=== PATIENT | female | born 1985 | race Two or more races ===

== ENCOUNTER 2017-04-28 06:40 | Emergency (ER) | payer MEDICAID ==
[~2017-04-28] VITALS: Ht 165.1 cm; Wt 72.6 kg
[~2017-04-28 06:40] MED LIST: [UNRECOGNIZED DRUG - CODE]
[2017-04-28 07:18] LABS: Basophils # (auto) 0 uL; Basophils % (auto) 0.3 % (0.0-2.0); CONDITION Y; Eosinophils # (auto) 0.1 uL; Hematocrit 36.3 % (36.0-46.0); Hemoglobin 12.1 g/dL (12.2-16.2); Lymphocytes # (auto) 1.2 uL; Lymphocytes % (auto) 16.4 % (10.0-50.0); Mean Corpuscular Hemoglobin 28.9 pg (28.0-32.0); Mean Corpuscular Hgb Conc. 33.5 g/dL (32.0-36.0); Mean Corpuscular Volume 86.4 fL (80.0-100.0); Mean Platelet Volume 8.8 fL (7.4-10.4); Monocytes # (auto) 0.6 uL; Monocytes % (auto) 8.2 % (0.0-12.0); Neutrophils # (auto) 5.4 uL; Neutrophils % (auto) 74.1 % (37.0-80.0); Platelet Count (auto) 276 10^3/uL (140-450); White Blood Cell 7.3 10^3/uL (4.4-10.8)
[2017-04-28] MEDS ORDERED: SODIUM CHLORIDE 0.9% 1,000 ML IVB ONE (07:34)
[2017-04-28] MEDS ORDERED: METOCLOPRAMIDE HCL 5MG/ml INJ 2ml VIAL IV ONE (07:45)
[2017-04-28] MEDS ORDERED: KETOROLAC TROMETH 30 MG/ML 1ML VIAL IV ONE (07:45)
[2017-04-28 08:09] LABS: Potassium 3.8 mmol/L (3.5-5.1)
[2017-04-28 08:10] LABS: Albumin 3.5 g/dL (3.4-5.0); BUN/Creatinine Ratio 11.1; Bilirubin, Total 0.5 mg/dL (0.2-1.0); Calcium 8.6 mg/dL (8.5-10.1); Total Protein 8.2 g/dL (6.4-8.2)
[2017-04-28 08:41] LABS: Urine Bilirubin Negative (Negative); Urine Color Yellow (Yellow); Urine Glucose Normal (Normal); Urine Mucus FEW (None Seen); Urine Nitrite Negative (Negative); Urine RBC 25 /hpf (0 - 4); Urine Squamous Epithelial Cell MOD /hpf (<5); Urine Urobilinogen Normal (Negative)
[2017-04-28 08:42] LABS: Urine Blood 2+ /uL (Negative); Urine Ketone 1+ (Negative)
[2017-04-28 10:04] VITALS: BP 115/61
[2017-04-28] MEDS ORDERED: cefTRIAXone 1GM/50ML D5W 50 ML IV ONE (12:00)
== END 2017-04-28 13:12 | disposition home or self-care (01) ==
LOC: ER 06:41
DX: N39.0 Urinary tract infection, site not specified (principal); R11.2 Nausea with vomiting, unspecified
CPT/HCPCS: 36415; 71020; 76705; 80053; 81001; 81025; 82150; 83690; 83735; 85025; 96361; 96365; 96375; 99285; J0696; J1885; J2765; J7030

== ENCOUNTER 2019-04-23 19:09 | Emergency (ER) | payer MEDICAID ==
[~2019-04-23] VITALS: Ht 165.1 cm; Wt 74.8 kg
[2019-04-23] MEDS ORDERED: ACETAMINOPHEN 325 MG TAB PO ONE (20:00)
[2019-04-23 20:38] LABS: Basophils # (auto) 0 uL; Basophils % (auto) 0.4 % (0.0-2.0); Eosinophils # (auto) 0.1 uL; Eosinophils % (auto) 1.3 % (0.0-7.0); Hematocrit 35.3 % (36.0-46.0); Hemoglobin 11.6 g/dL (12.2-16.2); Lymphocytes # (auto) 1.3 uL; Lymphocytes % (auto) 16.7 % (10.0-50.0); Mean Corpuscular Hemoglobin 27.3 pg (28.0-32.0); Mean Corpuscular Hgb Conc. 32.9 g/dL (32.0-36.0); Monocytes # (auto) 0.5 uL; Monocytes % (auto) 6.3 % (0.0-12.0); Neutrophils # (auto) 5.9 uL; Neutrophils % (auto) 75.3 % (37.0-80.0); Platelet Count (auto) 279 10^3/uL (140-450); Red Blood Cells 4.26 10^6/uL (4.0-5.20); White Blood Cell 7.9 10^3/uL (4.4-10.8)
[2019-04-23 20:39] LABS: Albumin 3.8 g/dL (3.4-5.0); BUN/Creatinine Ratio 9.6; Calcium 9.1 mg/dL (8.5-10.1); Potassium 3.8 mmol/L (3.5-5.1)
[2019-04-23 20:42] LABS: Bilirubin, Total 0.5 mg/dL (0.2-1.0); Total Protein 7.8 g/dL (6.4-8.2)
[2019-04-23 22:21] LABS: Urine Bacteria MANY /hpf (None Seen); Urine Blood 2+ /uL (Negative); Urine Mucus FEW (None Seen); Urine Specific Gravity 1.016 (1.001-1.035); Urine WBC 335 /hpf (0 - 5)
[2019-04-23] MEDS ORDERED: MORPHINE SULFATE 4 MG/ML SYR/VIAL IV ONE (23:15)
[2019-04-23] MEDS ORDERED: ONDANSETRON HCL 4 MG/2 ML VIAL IV ONE (23:15)
[2019-04-23] MEDS ORDERED: SODIUM CHLORIDE 0.9% 1,000 ML IV ONE (23:15)
[2019-04-23] MEDS ORDERED: cefTRIAXone 1GM/50ML D5W 50 ML IV ONE (23:15)
[2019-04-24] VITALS: BP 104/68
== END 2019-04-24 00:51 | disposition home or self-care (01) ==
LOC: ER 19:11
DX: N39.0 Urinary tract infection, site not specified (principal)
CPT/HCPCS: 36415; 74176; 80053; 81001; 84702; 85025; 96365; 96375; 99284; J0696; J2270; J2405; J7030

== ENCOUNTER 2020-07-11 17:33 | Emergency (ER) | payer MEDICAID ==
[~2020-07-11] VITALS: Ht 165.1 cm; Wt 74.8 kg
[2020-07-11 18:01] VITALS: BP 110/76
== END 2020-07-11 19:46 | disposition home or self-care (01) ==
LOC: ER 17:33
DX: U07.1 COVID-19 (principal); J18.8 Other pneumonia, unspecified organism
CPT/HCPCS: 36415; 71045; 87426

== ENCOUNTER 2022-08-02 18:22 | Emergency (ER) | payer MEDICAID ==
[~2022-08-02] VITALS: Ht 165.1 cm; Wt 74.0 kg
[2022-08-02 21:38] LABS: Urine Bacteria FEW /hpf (None Seen); Urine Blood 2+ /uL (Negative); Urine Specific Gravity 1.011 (1.001-1.035); Urine WBC 23 /hpf (0 - 5)
[2022-08-03] MEDS ORDERED: OXYCODONE W/ ACETAMINOPHEN 5/325MG TABLET PO ONE (02:15)
[2022-08-03] MEDS ORDERED: NITROFURANTOIN 100 mg CAP PO ONE (02:15)
[2022-08-03] MEDS ORDERED: cefTRIAXone SOD 1,000 MG VL IM ONE (02:15)
[2022-08-03] MEDS ORDERED: LIDOCAINE 1% HCL (LOCAL ANESTH.) INJ 20ML MDV IJ ONE (02:30)
[2022-08-03] MEDS ORDERED: NITR-87 PO (02:51)
[2022-08-03 03:07] VITALS: BP 119/64
== END 2022-08-03 03:04 | disposition left against medical advice (07) ==
LOC: ER 18:22
DX: N39.0 Urinary tract infection, site not specified (principal); Z79.899 Other long term (current) drug therapy
CPT/HCPCS: 74176; 81001

== ENCOUNTER 2023-06-30 10:01 | Emergency (ER) | payer MEDICAID ==
[~2023-06-30] VITALS: Ht 165.1 cm; Wt 79.2 kg
[~2023-06-30 10:01] MED LIST changes: +NITR-87 PO
[2023-06-30 10:29] VITALS: BP 124/91; PULSE 79; RESP 16; TEMP 98.1; O2SAT 100
[2023-06-30] MEDS ORDERED: ACETAMINOPHEN 500 MG TAB PO ONE (10:45)
[2023-06-30] MEDS ORDERED: IBUP-1456 PO (11:15)
== END 2023-06-30 11:10 | disposition home or self-care (01) ==
LOC: ER 10:01
DX: M54.2 Cervicalgia (principal); Z79.899 Other long term (current) drug therapy; V89.2XXA Person injured in unspecified motor-vehicle accident, traffic, initial encounter; Y93.I9 Activity, other involving external motion; Y92.89 Other specified places as the place of occurrence of the external cause; Y99.8 Other external cause status
CPT/HCPCS: 72040